=== PATIENT | male | born 1945 | race African-American/Black ===

== ENCOUNTER 2020-11-12 08:22 | Emergency (ER) | payer OTHER ==
[~2020-11-12] VITALS: Ht 170.2 cm; Wt 70.0 kg
[2020-11-12 09:13] LABS: BASOPHILS % 0.7 % (0.0-2.0); EOSINOPHILS % 0.8 % (0.0-5.0); HEMATOCRIT. 39.3 % (42.0-52.0); HEMOGLOBIN. 13.1 g/dL (14.0-18.0); MEAN CORPUSCULAR HEMOGLOBIN 30.4 pg (28.0-32.0); MEAN CORPUSCULAR VOLUME 91.5 fL (80.0-94.0); MEAN PLATELET VOLUME 7.8 fl (7.4-10.4); MONOCYTES % 12.7 % (2.0-8.0); NEUTROPHILS % 69.8 % (40.0-76.0); PLATELET 194 x1000/uL (130-400); RED BLOOD CELL COUNT 4.29 mill/uL (4.7-6.1)
[2020-11-12 09:20] LABS: CHLORIDE 111 mEq/L (98-107)
[2020-11-12 10:35] VITALS: BP 145/64
== END 2020-11-12 11:35 | disposition home or self-care (01) ==
LOC: ER 08:39
DX: R00.2 Palpitations (principal); I48.91 Unspecified atrial fibrillation; Z79.01 Long term (current) use of anticoagulants
CPT/HCPCS: 36415; 71045; 80053; 80162; 83880; 84484; 85025; 93005; 99285; Z7610

== ENCOUNTER 2021-02-24 03:26 | Inpatient (IN) | payer OTHER ==
[~2021-02-24] VITALS: Ht 172.7 cm; Wt 70.0 kg
[2021-02-24] MEDS ORDERED: DILTIAZEM HCL 5MG/ML 5ML VIAL IV ONE (03:45)
[2021-02-24 03:57] LABS: BASOPHILS % 0.5 % (0.0-2.0); EOSINOPHILS % 2.2 % (0.0-5.0); HEMOGLOBIN. 13.5 g/dL (14.0-18.0); LYMPHOCYTES % 20.1 % (20.0-50.0); MEAN CORPUSCULAR HEMOGLOBIN 30.5 pg (28.0-32.0); MEAN CORPUSCULAR VOLUME 92.6 fL (80.0-94.0); MEAN PLATELET VOLUME 8.5 fl (7.4-10.4); MONOCYTES % 14.8 % (2.0-8.0); NEUTROPHILS % 62.4 % (40.0-76.0); PLATELET 173 x1000/uL (130-400); RED BLOOD CELL COUNT 4.42 mill/uL (4.7-6.1); RED CELL DISTRIBUTION WIDTH 15.6 % (11.6-14.6)
[2021-02-24 04:04] LABS: CHLORIDE 112 mEq/L (98-107)
[2021-02-24] MEDS ORDERED: SODIUM CHLORIDE 0.9% 500 ML IV ONE (06:15)
[2021-02-24] MEDS ORDERED: DILTIAZEM HCL 125 MG in DEXTROSE 5% WATER 125 ML IV PRN (06:30)
[2021-02-24] MEDS ORDERED: METOPROLOL TARTRATE 50MG TABLET PO SCH (09:00)
[2021-02-24] MEDS ORDERED: APIXABAN 5 MG TABLET PO SCH (09:00)
[2021-02-24 11:30] VITALS: BP 113/57
== END 2021-02-24 13:59 | disposition left against medical advice (07) | DRG 310 ==
LOC: ER 04:10 → EDBEDREQTM 04:48 → EDBEDREQ 04:48 → MICUSO 12:39
PROVIDERS: ADMIT Internal Medicine; ATTEND Internal Medicine
DX: I48.91 Unspecified atrial fibrillation (principal); Z53.29 Procedure and treatment not carried out because of patient's decision for other reasons
CPT/HCPCS: 36415; 71045; 80053; 83735; 83880; 84484; 85025; 99291; J3490; J7040; J7060